=== PATIENT | male | born 2000 | race Caucasian/White ===

== ENCOUNTER 2019-06-25 11:10 | Outpatient (CLI) | payer OTHER, SELFPAY ==
--- NOTE | ~2019-06-25 | CT_ITS ---
EXAMINATION: CT sinus wo con DATE: 06/25/2019 11:42 INDICATION: Chronic congestion, chronic sinusitis TECHNIQUE: Computed tomography (CT) of the paranasal sinuses was performed without contrast. Iterativ e reconstruction technique was employed. Exam dose: 289.66 mGy-cm total exam DLP. COMPARISON: None FINDINGS: There is rightward deviation of the nasal septum. Prominent julito bullosa and interlamellar cell of the middle nasal turbinates. The inferior nasal tu rbinates are prominently swollen, right greater than left. The ostiomeatal units are patent. There is slight patchy mucoperiosteal thickening of the ethmoid air cells and maxillary and sphenoid sinuses. No soft tissue mass densities, polyps or fluid levels. The mastoid air cells are normally developed and aerated bilaterally. IMPRESSION: Minimal patchy mucoperiosteal thickening of the sinuses Reviewed, dictated and finalized at [facility]. Reviewed, dictated and finalized at [facility].
== END 2019-06-25 11:11 | disposition home or self-care (01) ==
DX: J32.9 Chronic sinusitis, unspecified (principal)
CPT/HCPCS: 70486